=== PATIENT | male | born 1980 | race Caucasian/White ===

== ENCOUNTER 2022-05-09 18:23 | Day surgery (SDC) | payer OTHER, SELFPAY ==
[2022-05-09] VITALS (14 sets, daily range): BP systolic 129–180; BP diastolic 67–110; PULSE 60–90; RESP 12–22; TEMP 36.4–36.6; O2SAT 94–99; BMI 33.8
--- NOTE | 2022-05-09 18:52 | PM.GSCN ---
History of Present Illness Consult details Consult date: 05/09/22 Narrative: Patient is a cio. He states that 2 days ago he started to have some pain in the right upper quadrant. This was similar to pain that he has experienced before, but it just increased in intensity instead of going away. The pain then migrated to his right lower quadrant. He denies any nausea or vomiting, but does report a decrease in appetite. No reported diarrhea or constipation. No fevers or chills at home. He has never had abdominal surgery before. Review of Systems Status of ROS: Reports: 6 or more systems reviewed and unremarkable except as noted in History and below [facility] Active Problems (Updated 05/09/22 @ 18:55 by Linda Falcon MD) Appendicitis (Acute) K37 Exam Narrative: Exam Narrative: General: Alert and oriented, no acute distress, nontoxic. Respiratory: Equal breath rise bilaterally, maintained on room air CV: Regular rhythm and rate, well perfused Abdomen: Tender to palpation right lower quadrant with some guarding and rebound. Nondistended, soft. Results Labs Labs: All other labs normal. Imaging Abdomen CT scan report/results: image reviewed (Evidence of acute, uncomplicated appendicitis.) Assessment and Plan Assessment and plan (1) Appendicitis: Status: Acute Plan The patient presented with a history, exam and imaging findings consistent with acute appendicitis. I discussed the treatment options with the patient including non-surgical and surgical options. I recommended laparoscopic appendectomy. The risks of surgery were reviewed with the patient including the risks of bleeding, post-operative wound or intra-abdominal infection, injury to abdominal structures and possible conversion to an open operation. We also discussed anesthetic complications including TN, stroke, respiratory failure and blood clots. The patient voiced an understanding of our conversation, had the opportunity to ask questions, agreed to accept the risks of surgery and asked that we proceed with surgery.
[2022-05-09] MEDS: BUPIVACAINE 0.25% 30 ML INJECTION (20:11)
[2022-05-09] MEDS: fentaNYL 100 MCG/2 ML inj 50 MCG IVP ×2 (20:30→20:36)
[2022-05-09] MEDS: MEPERIDINE 25 MG/ML INJ 12.5 MG IVP (20:34)
--- NOTE | 2022-05-09 20:41 | W.ANESCHARGE ---
Anesthesia Charges Start Date/Time Anesthesia Start Date: 05/09/22 Anesthesia Start Time: 19:02 Stop Date/Time Anesthesia Stop Date: 05/09/22 Anesthesia Stop Time: 20:30 Summary Emergency: Yes
--- NOTE | 2022-05-09 20:43 | PM.GSPRC ---
Operative Note Date of procedure: 05/09/22 Type of Procedure: Laparoscopic appendectomy Procedure Description: After discussing the risks and benefits of the procedure, the patient signed informed consent.? The operative site was marked and the patient was brought to the operating room and placed on the operating table in supine position.? Care was taken to pad the patient's pressure points.?? The patient was then [intubated/given sedation] by anesthesia.?? The operative site was then prepped and draped in the usual sterile fashion.? A time-out was then performed. Entrance to the abdomen was obtained via a 5 mm optical trocar in the left upper quadrant. The abdomen was insufflated and briefly surveyed for any signs of injury. There were none. A 12 mm port was placed lateral to the umbilicus as well as a 5 mm port in the left lower quadrant under direct vision. The patient was then placed in Trendelenburg position with the right side up. The small bowel was gently moved out of the way and the appendix was in view. A small amount of dissection was necessary to free the appendix from the surrounding pelvic attachments. This was grasped and pulled into view. A mesenteric window was created between the base of the appendix and the mesoappendix. A 45 mm Endo-ANDYR purple load stapler was then used to transect the appendix at its base. A 30 mm vascular load stapler was then used to take the mesoappendix. The staple lines were inspected for bleeding. There was none. The appendix was then removed from the abdomen using an Endo-Catch bag. The specimen was sent to pathology. The 12 mm port site fascia was closed with 0 Vicryl. The skin was then closed with absorbable subcuticular suture. Sterile dressings were then applied. Instrument sponge and needle counts were correct at the end of the case. The patient was then woken and transported to the PACU in stable condition. ? Sterile dressings were then applied. ? The patient was then woken and transported to the recovery area in stable condition. ? The patient tolerated the procedure well. Findings: Acute, non perforated appendicitis Anesthesia: GETA Surgeon: Linda Falcon MD Estimated blood loss (mL): 5 Condition: stable Disposition: PACU
[2022-05-09] MEDS: LACTATED RINGERS 1000 ML 1,000 ML 35 ML IV (21:00)
[2022-05-09] MEDS: HYDROmorphone 0.5 mg/0.5 ml inj IVP (21:37)
[2022-05-10] MEDS: LACTATED RINGERS 1000 ML 1,000 ML 35 ML IV (00:47)
[2022-05-10 03:00] VITALS: BP 111/54; PULSE 60; RESP 16; TEMP 36.4; O2SAT 91
[2022-05-10] MEDS: OXYCODONE 5 MG TABLET PO (04:58)
--- NOTE | 2022-05-10 06:48 | PC.NURSE ---
Alert and oriented. STable blood pressure overnight. No temps noted. Pain managed with Oxycodone with good results.Ambulating self independently in the room.Denies concerns overnight.
[2022-05-10 07:00] VITALS: BP 156/97; PULSE 82; RESP 16; TEMP 36.6; O2SAT 95
--- NOTE | 2022-05-10 09:08 | PM.DS1 ---
DS: Providers Provider Date of admission: 05/09/22 Primary care physician: Not a Local Provider Admitting Clinician: Linda Falcon MD Attending Physician on discharge: Linda Falcon MD Date of Discharge: 05/10/22 DS: Diagnosis Discharge Diagnosis (1) Appendicitis: Status: Acute DS: Summary Hospital Course Hospital Course: Patient presented to urgent care with findings consistent for acute, uncomplicated appendicitis. He was admitted to the hospital and underwent a laparoscopic appendectomy. No evidence of perforation. Patient tolerated procedure well without immediate complication. On the day of discharge pain was well controlled with oral pain medications, he was tolerating a regular diet, voiding and ambulating independently. Status at Discharge Functional status at discharge: independent ambulation Overall status at discharge: patient is progressing back to baseline Time Spent with Patient Time attestation: Total time spent providing and/or coordinating discharge services: Time spent: Less than 30 minutes Exam Narrative: Exam Narrative: General: Alert and oriented, no acute distress Abdomen: Soft, tender at incision sites without guarding or rebound, nondistended. Const: Vital Signs, click to edit/add: Vital Signs - 24 hr 05/09/22 19:04 05/09/22 20:29 05/09/22 20:35 Temperature 97.8 F 97.6 F Pulse Rate 90 81 Pulse Rate [Right Pulse Oximeter] 73 Respiratory Rate 18 22 22 Blood Pressure 176/87 H 155/79 H Blood Pressure [Ri ght Arm] 179/110 H Pulse Oximetry 99 94 95 05/09/22 20:40 05/09/22 20:43 05/09/22 20:50 Temperature 97.6 F 97.8 F Pulse Rate 66 86 86 Pulse Rate [Right Pulse Oximeter] Respiratory Rate 18 20 14 Blood Pressure 129/67 179/99 H 134/73 Blood Pressure [Ri ght Arm] Pulse Oximetry 94 95 96 05/09/22 21:00 05/09/22 21:07 05/09/22 21:15 Temperature 97.7 F 97.7 F Pulse Rate 68 73 81 Pulse Rate [Right Pulse Oximeter] Respiratory Rate 12 12 16 Blood Pressure 134/73 145/75 H Blood Pressure [Ri ght Arm] Pulse Oximetry 97 95 05/09/22 21:30 05/09/22 21:45 05/09/22 22:00 Temperature Pulse Rate Pulse Rate [Right Pulse Oximeter] 69 60 61 Respiratory Rate 16 16 16 Blood Pressure Blood Pressure [Ri ght Arm] 173/103 H 159/101 H 180/100 H Pulse Oximetry 95 94 96 05/09/22 22:30 05/09/22 23:03 05/10/22 03:00 Temperature 98 F 97.6 F Pulse Rate Pulse Rate [Right Pulse Oximeter] 72 68 60 Respiratory Rate 16 16 16 Blood Pressure Blood Pressure [Ri ght Arm] 152/99 H 135/80 111/54 L Pulse Oximetry 95 97 91 Documenting provider has reviewed patient's vital signs: yes DS: Data Data Completed and Pending Completed studies during hospitalization: CT scan performed at outside hospital. Labs on day of discharge: None. Discharge Plan Discharge Disposition: Home, Self-Care Discharging Surgeon: Linda Falcon Follow-Up Appointment: 2 week follow up at [facility]. Ok for phone follow up. Prescriptions: New oxycodone 5 mg Tablet 5 - 10 mg PO Q6-8H PRN (Reason: Pain) Qty: 10 0RF senna 8.6 mg capsule 8.6 mg PO BID PRN (Reason: constipation) Qty: 90 0RF Rx Instructions: Please take while on narcotic pain medication. Stop if having > 2 stools per day. Activity Level: Activity as Tolerated Activity Detail: Activity as tolerated. Avoid strenuous activity. No lifting greater than 20 lb for 2 weeks. Discharge Diet: Regular Patient Instructions: General Anesthesia (DC), Laparoscopic Appendectomy (DC), Post-Operative Instructions: Appendectomy Additional Instructions: Your sutures are under the skin will dissolve over time. Okay to shower starting tomorrow, but avoid bathing, soaking or swimming for 2 weeks. No need described or wash the area. Avoid applying lotions. Apply ice as needed for swelling. Forms: Work/Release Restrictions Follow-up: Provider,Not a Local [Primary Care Provider] - Discharge Orders: Discharge Order (Routine); Ordered 05/10/22 Ordered By: Linda Falcon
--- NOTE | 2022-05-10 10:45 | PC.NURSE ---
Addendum entered by Sarah Sawant RN 05/10/22 11:10: CORRECTION Pt. discharged at 1030. Original Note: Pt. alert and oriented x3, very pleasant and cooperative. Pt. rated pain at 3, refused pain meds. Pt. able to ambulate independently in room and to bathroom. Tolerated activity well. IV removed and intact at 0930. Discharge instructions given and signed and belonging forms signed. Pt. ambulated off unit w/spouse via ambulation at 0930.
== END 2022-05-10 10:30 | disposition home or self-care (01) ==
LOC: SS 18:25 → MEDSURG 18:28
PROVIDERS: Visit Provider Surgery
PROC: 0DTJ4ZZ Resection of Appendix, Percutaneous Endoscopic Approach (ICD-10-PCS; CPT 44970; principal; 2022-05-09 17:00)
DX: K35.80 Unspecified acute appendicitis (principal)
CPT/HCPCS: 44970; 00840; 88304; 99140; A9270; J0330; J1100; J1170; J1885; J2175; J2250; J2405; J2543; J2704; J3010; J3490; J7120

== ENCOUNTER 2025-07-28 09:32 | Outpatient (CLI) | payer BC, SELFPAY | END 2025-07-28 09:33 | disposition home or self-care (01) | LOC: INJ CL 09:34 | PROVIDERS: PCP Family Medicine; Visit Provider Family Medicine | DX: M54.16 Radiculopathy, lumbar region (principal); M51.360 Other intervertebral disc degeneration, lumbar region with discogenic back pain only | CPT/HCPCS: 62323; J0702; Q9966 ==